=== PATIENT | male | born 1940 | race Two or more races ===

== ENCOUNTER → 2019-04-02 | Outpatient (CLI) | payer MEDICARE ==
--- NOTE | 2019-04-02 16:59 | RAD ---
2 view abdominal series Clinical indications: Left lower quadrant pain. Possible ascites. FINDINGS: No obstructive bowel pattern is evident. Mild fecal retention is seen throughout the colon. No significant fecal retention is seen within the rectum. No air-fluid levels are seen. No free intraperitoneal air is seen. IMPRESSION: No acute abnormality is evident. Electronically signed by: Francesco Winslow MD (04/02/2019 4:56 PM) [id number]
--- NOTE | 2019-04-02 17:00 | RAD ---
Chest, PA and Lateral: Technique: PA and lateral views of the chest were obtained. History: Left lower quadrant pain, ascites. Comparison: 12/01/2006. Findings: Mild cardiomegaly. There is mild prominent appearing bilateral interstitial lung markings likely chronic interstitial changes. Mild degenerative changes thoracic spine. IMPRESSION: No acute cardiopulmonary findings. Electronically signed by: Rishi Leigh MD (04/02/2019 4:57 PM) [place] [id number]
== END | disposition home or self-care (01) ==
LOC: RAD 16:00
PROVIDERS: ATTEND Family Medicine
DX: I51.7 Cardiomegaly (principal); M47.814 Spondylosis without myelopathy or radiculopathy, thoracic region; K59.00 Constipation, unspecified
CPT/HCPCS: 71046; 74019

== ENCOUNTER → 2019-05-16 | Outpatient (CLI) | payer MEDICARE ==
--- NOTE | 2019-05-16 17:48 | RAD ---
3 view study of the great toe of the left foot Clinical indications: Fell and injured left great toe. FINDINGS: There is a nondisplaced fracture of the proximal medial corner of the first distal phalanx. There is a nondisplaced oblique fracture of the shaft of the first proximal phalanx. No dislocation or lytic process evident. 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 IMPRESSION: Acute post traumatic fractures of the first proximal and distal phalanges. Electronically signed by: Francesco Winslow MD (05/16/2019 5:44 PM) [place] [id number]
== END | disposition home or self-care (01) ==
LOC: RAD 14:09
PROVIDERS: ATTEND Family Medicine
DX: S92.415A Nondisplaced fracture of proximal phalanx of left great toe, initial encounter for closed fracture (principal); S92.425A Nondisplaced fracture of distal phalanx of left great toe, initial encounter for closed fracture; S90.112A Contusion of left great toe without damage to nail, initial encounter; M19.072 Primary osteoarthritis, left ankle and foot; W19.XXXA Unspecified fall, initial encounter; Y93.89 Activity, other specified; Y92.89 Other specified places as the place of occurrence of the external cause; Y99.8 Other external cause status
CPT/HCPCS: 73660

== ENCOUNTER → 2021-12-24 | Outpatient (CLI) | payer MEDICARE ==
[2021-12-24 14:38] LABS: BASO % 1 % (0-3); EOS % 1 % (0-3); HEMATOCRIT 44.6 % (39.0-53.0); HEMOGLOBIN 14.8 g/dL (13.0-17.5); LYMPH # 1.5 x10^3/uL (1.0-4.8); LYMPH % 37 % (24-48); MEAN CORPUSCULAR HEMOGLOBIN 33 pg (25-35); MEAN CORPUSCULAR HGB CONC 33 g/dL (31-37); MEAN CORPUSCULAR VOLUME 99 fL (79-100); MONO # 0.5 x10^3/uL (0.0-1.1); MONO % 14 % (0-9); NEUT # 1.9 x10^3uL (1.8-7.7); NEUT % 47 % (31-73); PLATELET COUNT 190 x10^3/uL (140-400); RED BLOOD COUNT 4.52 x10^6/uL (4.30-5.70); RED CELL DISTRIBUTION WIDTH 14.1 % (11.5-14.5); WHITE BLOOD COUNT 4.1 x10^3/uL (4.0-11.0)
[2021-12-24 14:41] LABS: GFR 72.1; POTASSIUM 4.5 mmol/L (3.5-5.1)
[2021-12-24 14:56] LABS: ALBUMIN 3.6 g/dL (3.4-5.0); TOTAL BILIRUBIN 0.5 mg/dL (0.2-1.0); TOTAL PROTEIN 7.2 g/dL (6.4-8.2)
[2021-12-25 19:14] LABS: FREE T4 0.94 ng/dL (0.76-1.46); THYROID STIM HORMONE (TSH) 2.498 uIU/mL (0.358-3.740)
== END ==
LOC: LAB 12:45
PROVIDERS: ATTEND Family Medicine
DX: I50.32 Chronic diastolic (congestive) heart failure (principal); E03.9 Hypothyroidism, unspecified; E44.0 Moderate protein-calorie malnutrition; R25.2 Cramp and spasm; D64.9 Anemia, unspecified
CPT/HCPCS: 36415; 80053; 82550; 83735; 83880; 84439; 84443; 84484; 85025

== ENCOUNTER → 2022-02-05 | Outpatient (CLI) | payer MEDICARE ==
--- NOTE | 2022-02-05 15:29 | RAD ---
CT HEAD/BRAIN WO Date: 02/05/2022 3:15 PM Clinical Indication: Reason: / Spl. Instructions: ABN FINDINGS ON DX IMAGING OF HEAD/SKULL. / Histor y: Comparison: None. Technique: 5 mm axial tomographic images were obtained of the head without contrast. These were view ed on brain and bone windows. One or more of the following dose reduction techniques were utilized: A utomated exposure control (AEC), Adjustment of mA and/or kV according to patient size, Use of iterati ve reconstruction technique such as ASiR, CT scan done according to ALARA and image gently/image ruth ly Findings: Moderate generalized cerebral and cerebellar volume loss. Mild nonspecific periventricular hypoattenu ation, most commonly seen with chronic small vessel ischemic disease. Calcified atherosclerosis of th e bilateral cavernous and paraclinoid internal carotid arteries and intracranial vertebral arteries. No intra- or extra-axial mass or fluid collection. No acute hemorrhage. The ventricles are normal in size, shape, and morphology. The castellano-white matter junction is normal. The subarachnoid cisterns are patent. The visualized paranasal sinuses are normal. The visualized portions of the orbits and globes are no rmal. The mastoid air cells are clear. The scroll assembler topogram shows no lytic lesion or fracture. Impression: No acute intracranial process. Moderate cerebral volume loss. Mild chronic small vessel ischemic disease. Electronically signed by: Ronnell Schmidt DO (02/05/2022 3:26 PM) [id number]
== END ==
LOC: CT 15:01
PROVIDERS: ATTEND Family Medicine
DX: I67.82 Cerebral ischemia (principal); R93.0 Abnormal findings on diagnostic imaging of skull and head, not elsewhere classified; I70.0 Atherosclerosis of aorta
CPT/HCPCS: 70450